=== PATIENT | female | born 1995 ===

== ENCOUNTER 2022-07-22 00:21 | Outpatient (CLI) | payer OTHER, BC, SELFPAY ==
[2022-07-22] VITALS (16 sets, daily range): BP systolic 97–123; BP diastolic 52–90; PULSE 69–84; RESP 16–20; TEMP 36.5–36.8; O2SAT 98–99; BMI 38.3
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
--- NOTE | 2022-07-22 00:43 | ED.NURSE ---
Pt to OB via cot
[2022-07-22 00:47] LABS: Basophils Absolute Auto 0.01 K/uL (0.00-0.30); Basophils Percent Auto 0.1 % (0.0-3.0); Eosinophils Absolute Auto 0.05 K/uL (0.00-0.50); Eosinophils Percent Auto 0.5 % (0.0-7.0); Hematocrit 30.3 % (33.0-51.0); Immature Granulocytes Abs Auto 0.03 K/uL (0.00-0.30); Immature Granulocytes Pct Auto 0.3 %; Lymphocytes Absolute Auto 2.33 K/uL (0.90-2.90); Mean Corpuscular HGB Conc 33 gm/dL (32-36); Mean Corpuscular Hemoglobin 27 pg (26-34); Mean Corpuscular Volume 83 fL (80-100); Monocytes Percent Auto 6.2 % (0.0-11.0); Neutrophils Absolute Auto 6.69 K/uL (1.7-7.0); Neutrophils Percent Auto 68.9 % (42.0-72.0); Platelet Count* 252 K/uL (140-440); RDW Coefficient of Variation % 12.8 % (11.5-15.5); Red Blood Count 3.66 m/uL (4.00-5.20); Slide Review Reflex No; White Blood Count* 9.71 K/uL (4.50-11.00)
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
[2022-07-22 00:58] LABS: Albumin* 3.6 g/dL (3.3-5.0); Chloride* 110 mmol/L (96-114); Sodium* 136 mmol/L (135-149)
[2022-07-22 01:00] LABS: Creatinine* 0.4 mg/dL (0.5-1.5); Est. Creatinine Clearance* 167.09; Estimated Glomerular Filt Rate 139 ml/min
[2022-07-22 01:01] LABS: Alanine Aminotransferase* 12 U/L (4-35); Alkaline Phosphatase* 74 U/L (40-150); Aspartate Amino Transferase* 16 U/L (12-35); Bilirubin Total* 0.3 mg/dL (0.1-1.5); Blood Urea Nitrogen* 12 mg/dL (5-24); Calcium* 9.2 mg/dL (8.4-10.6); Carbon Dioxide* 23 mmol/L (20-32); Glucose* 89 mg/dL (60-115); Total Protein* 6.8 g/dL (6.0-8.3)
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
== END 2022-07-22 21:09 | disposition home or self-care (01) ==
LOC: ED 00:52 → OB 00:52 → ED 00:53 → OB 00:53
PROVIDERS: Emergency Provider Family Medicine; PCP Obstetrics & Gynecology; Visit Provider Family Medicine
DX: O26.893 Other specified pregnancy related conditions, third trimester (principal); V89.2XXA Person injured in unspecified motor-vehicle accident, traffic, initial encounter; Z3A.34 34 weeks gestation of pregnancy
CPT/HCPCS: 36415; 59025; 76819; 80053; 81001; 85025; 86900; 86901; 99213; 99283; 99291; G0390